=== PATIENT | female | born 1965 | race African-American/Black ===

== ENCOUNTER 2017-03-31 20:12 | Emergency (ER) | payer OTHER ==
[~2017-03-31] VITALS: Ht 170.2 cm; Wt 90.7 kg
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
[2017-03-31] MEDS ORDERED: CYCL10TA2 PO (20:45)
[2017-03-31] MEDS ORDERED: TRAM50TA PO (20:45)
[2017-03-31] MEDS ORDERED: NAPR500T PO (20:45)
[2017-03-31 20:58] VITALS: BP 150/85
--- NOTE | 2017-04-01 08:34 | RAD ---
Indication injury, pain. AP oblique and lateral views of the left wrist were obtained. No bony abnormality is seen
== END 2017-03-31 20:57 | disposition home or self-care (01) ==
LOC: ER 20:12
DX: S66.912A Strain of unspecified muscle, fascia and tendon at wrist and hand level, left hand, initial encounter (principal); S29.012A Strain of muscle and tendon of back wall of thorax, initial encounter; V49.40XA Driver injured in collision with unspecified motor vehicles in traffic accident, initial encounter; Y93.I9 Activity, other involving external motion; Y92.410 Unspecified street and highway as the place of occurrence of the external cause; Y99.8 Other external cause status
CPT/HCPCS: 73110; 99284